=== PATIENT | female | born 1990 | race African-American/Black ===

== ENCOUNTER 2020-11-04 16:18 | Emergency (ER) | payer BC, OTHER, SELFPAY ==
--- NOTE | ~2020-11-04 | XR_ITS ---
EXAMINATION: XR ankle RT min 3V INDICATION: Right ankle pain TECHNIQUE: Four views of the right ankle are obtained. COMPARISON: None available FINDINGS: There is lateral soft tissue swelling of ankle. Bone alignment is normal. There is no fract ure. IMPRESSION: 1. Lateral ankle soft tissue swelling without acute osseous abnormality. Reviewed, dictated and finalized at location A. TO LOADER
[2020-11-04 16:24] VITALS: BP 133/70; PULSE 98; RESP 16; TEMP 36.2; O2SAT 100
--- NOTE | 2020-11-04 16:54 | ED.LOWEXIN ---
HPI - Extremity Injury (Lower) General Chief Complaint: Extremity Injury, Lower Stated Complaint: fall/right ankle pain Time Seen by Provider: 11/04/20 16:27 Source: patient Mode of arrival: ambulatory Limitations: no limitations History of Present Illness HPI Narrative: Patient is a 30-year-old female who presents complaining of right ankle pain. Patient reports twisting and slip and fall on right ankle yesterday. She reports swelling and pain with ambulation. She denies other injuries. She denies taking [id number] medications for pain at this time. Patient does report using ice and elevation was limited relief. complaint: ankle injury Related Data Allergies Allergy/AdvReac Type Severity Reaction Status Date / Time No Known Allergies Allergy Verified 11/04/20 16:29 Review of Systems Review of Systems: Narrative: CONSTITUTIONAL: Denies fever, chills, or sweats. EYES: Denies visual changes, redness, or discharge. ENT: Denies rhinorrhea, congestion, sore throat, or otalgia. CARDIOVASCULAR: Denies chest pain, palpitations, or edema. RESPIRATORY: Denies cough or dyspnea. GASTROINTESTINAL: Denies abdominal pain, nausea, vomiting, or diarrhea. GENITOURINARY: Denies dysuria or hematuria. SKIN: Denies rash or itching. MUSCULOSKELETAL: Right ankle pain and swelling NEUROLOGIC: Denies headache, numbness, dizziness, or weakness. PSYCHIATRIC: Denies anxiety or depression. PMFSH Past Medical History Medical History (Updated 11/04/20 @ 17:03 by KENYON Gustafson) No significant past medical history Surgical History Surgical History (Updated 11/04/20 @ 16:56 by KENYON Gustafson) No significant past surgical history Family History Family History (Updated 11/04/20 @ 16:56 by KENYON Gustafson) Other No significant family history Social History Social History (Updated 11/04/20 @ 16:57 by KENYON Gustafson) Smoking status: Current some day smoker Alcohol intake: current Alcohol use details: Occasional Substance use: never Exam Narrative: Exam Narrative: GENERAL: Well-appearing, well-nourished, and in no acute distress. HEAD: Normocephalic, atraumatic. EYES: No redness or drainage. ENT: Mucous membranes pink and moist. CHEST: No respiratory distress. HEART: Regular rate and rhythm. EXTREMITIES: Pain with palpation to right ankle, lateral edema and ecchymosis, distal sensation intact, good capillary refill SKIN: Warm, dry, no rash. NEURO: No focal deficits. Alert and oriented x3. Gait steady. PSYCH: Normal affect. No signs of depression or anxiety. Course Vital Signs Vital signs: Vital Signs Temperature 36.2 C L 11/04/20 16:24 Pulse Rate 98 11/04/20 16:24 Respiratory Rate 16 11/04/20 16:24 Blood Pressure 133/70 11/04/20 16:24 Pulse Oximetry 100 11/04/20 16:24 Temperature 36.2 C L 11/04/20 16:24 Pulse Rate 98 11/04/20 16:24 Respiratory Rate 16 11/04/20 16:24 Blood Pressure 133/70 11/04/20 16:24 Pulse Oximetry 100 11/04/20 16:24 Reviewed-patient is informed that they may have pre-hypertension or hypertension based on a blood pressure reading. I recommend the patient call the primary care provider listed on their discharge instructions or a physician of their choice this week to arrange follow-up for further evaluation of possible pre-hypertension or hypertension. MDM - Extremity Injury (Lower) MDM Narrative Medical decision making narrative: Patient's x-ray is negative for fracture or dislocation. Discussed with patient most likely cause for pain as sprain or strain. Discussed pain medication as well as ice, rest and elevation. [place] wrap for comfort, patient to ambulate with crutches as needed. Patient is stable for discharge home with outpatient follow-up as discussed. Differential Diagnosis Differential diagnosis: Likely ankle sprain and strain, ankle fracture and other (Contusion) Critical Care Time Critical Care Time Critic
== END 2020-11-04 17:20 | disposition home or self-care (01) ==
PROVIDERS: Emergency Provider Nurse Practitioner
DX: S93.401A Sprain of unspecified ligament of right ankle, initial encounter (principal); S96.911A Strain of unspecified muscle and tendon at ankle and foot level, right foot, initial encounter; F17.200 Nicotine dependence, unspecified, uncomplicated; R03.0 Elevated blood-pressure reading, without diagnosis of hypertension; W01.0XXA Fall on same level from slipping, tripping and stumbling without subsequent striking against object, initial encounter
CPT/HCPCS: 73610; 99283